=== PATIENT | male | born 1945 | race Caucasian/White ===

== ENCOUNTER 2016-08-15 20:10 | Emergency (ER) | payer MEDICARE, OTHER ==
[~2016-08-15] VITALS: Ht 188 cm; Wt 117.0 kg
[~2016-08-15 20:10] MED LIST: ALLO300T2 PO; ATEN-102 PO; COUM3TAB PO; ROSU20 PO
[2016-08-15 20:32] VITALS: BP 159/105; PULSE 78; RESP 18; TEMP 98.1; O2SAT 94
[2016-08-15] MEDS ORDERED: METO25TA3 PO (20:39)
[2016-08-15] MEDS ORDERED: COUM3TAB PO (20:39)
[2016-08-15] MEDS ORDERED: AMLO5TAB2 PO (20:39)
[2016-08-15] MEDS ORDERED: ALLO300T2 PO (20:39)
[2016-08-15] MEDS ORDERED: ASPI81CH37 CHEW (20:39)
[2016-08-15] MEDS ORDERED: ROSU20 PO (20:39)
[2016-08-15] MEDS ORDERED: SERT25TA83 PO (20:39)
--- NOTE | 2016-08-15 21:00 | PD ---
HPI Chief Complaint: Edema Time Seen by Provider: 20:57 Travel History International Travel<30 days: No Contact w/Intl Traveler<30days: No Traveled to known affect area: No History of Present Illness HPI The patient is a 71-year-old male that complains of right knee swelling since noon today. The swelling came up fairly rapidly. The patient is on Coumadin for pulmonary embolus. He denies any trauma. He had surgery to that knee in 1970 but he doesn't remember what the surgery was about. PFSH Past Medical History Hx Anticoagulant Therapy: Yes (COUMADIN) Arthritis: Yes (RIGHT KNEE) Blood Disorders: No Heart Rhythm Problems: No Cancer: No Cardiac Catheterization: Yes (X2 1998, 2013) Cardiovascular Problems: Yes High Cholesterol: Yes Chemotherapy: No Chest Pain: Yes Congestive Heart Failure: No Coronary Artery Disease: Yes Diabetes: No Diminished Hearing: No Diverticulitis: Yes Deep Vein Thrombosis: Yes (BILATERAL LEGS) Endocrine: No Gastrointestinal Disorders: Yes GERD: Yes Gout: Yes Genitourinary: Yes Hepatitis: No Hiatal Hernia: No Hypertension: Yes Immune Disorder: No Kidney Stones: Yes Musculoskeletal: No Neurologic: No Psychiatric: No Reproductive: No Respiratory: Yes (PULMONARY EMBOLUS: 2000/2001) Myocardial Infarction: No Radiation Therapy: No Renal Failure: No Ulcer: No Tetanus Vaccination: < 5 Years Influenza Vaccination: Yes Past Surgical History Abdominal Surgery: Yes (UMBILICAL HERNIA) Appendectomy: No Cardiac Surgery: Yes (CARDIAC STENT PLACED) Cholecystectomy: No Coronary Stent: Yes (X2) Ear Surgery: No Endocrine Surgery: No Eye Surgery: No Genitourinary Surgery: Yes (KIDNEY STONE REMOVAL) Gynecologic Surgery: No Oral Surgery: Yes (TOOTH EXTRACTION: JUL 19, 2016) Thoracic Surgery: No Other Surgery: Yes Social History Alcohol Use: Yes (SOCIALLY) Tobacco Use: No Substance Use: No Allergies-Medications (Allergen,Severity, Reaction): Coded Allergies: Lipitor (Verified Allergy, Severe, 02/23/10: PT UNABLE TO TAKE LIPITOR, 08/15) Lansoprazole (Verified Adverse Reaction, Severe, Edema, 08/15/16) Lisinopril (Verified Adverse Reaction, Severe, Edema, 08/15/16) Omeprazole (Verified Adverse Reaction, Severe, Edema, 08/15/16) Pantoprazole (Verified Adverse Reaction, Severe, Edema, 08/15/16) Simvastatin (Verified Adverse Reaction, Severe, Edema/RASH, 08/15/16) Warfarin (Verified Adverse Reaction, Severe, Edema, 08/15/16) Reported Meds & Prescriptions Reported Meds & Active Scripts Active Reported Sertraline (Sertraline HCl) 25 Mg Tab 25 Mg PO DAILY Amlodipine (Amlodipine Besylate) 5 Mg Tab 5 Mg PO DAILY Aspirin Low Dose (Aspirin) 81 Mg Chew 81 Mg CHEW DAILY Crestor (Rosuvastatin Calcium) 20 Mg Tab 20 Mg PO DAILY Metoprolol Tartrate 25 Mg Tab 25 Mg PO BID Coumadin (Warfarin) 3 Mg Tab 3 Mg PO DAILY Allopurinol 300 Mg Tab 300 Mg PO DAILY Review of Systems Except as stated in HPI: all other systems reviewed are Neg Physical Exam Narrative GENERAL: The patient is alert, oriented 3 and slight apparent distress with his right knee discomfort. His vital signs show blood pressure 159/105 but are otherwise normal. SKIN: Warm and dry. HEAD: Atraumatic. Normocephalic. EYES: Pupils equal and round. No scleral icterus. No injection or drainage. ENT: No nasal bleeding or discharge. Mucous membranes pink and moist. NECK: Trachea midline. No JVD. CARDIOVASCULAR: Regular rate and rhythm. No murmur appreciated. RESPIRATORY: No accessory muscle use. Clear to auscultation. Breath sounds equal bilaterally. GASTROINTESTINAL: Abdomen soft, non-tender, nondistended. Hepatic and splenic margins not palpable. MUSCULOSKELETAL: No obvious deformities. No clubbing. No cyanosis. There is swelling in the right knee joint but no evidence of trauma or deformity. An old surgical scar is present over the patella. NEUROLOGICAL: Awake and alert. No obvious cranial nerve deficits. Motor grossly within normal limits. Normal speech. PSYCHIATRIC: Appropriate mood and affect; insight and judgment normal. Data Data Last Documented VS Vital Signs Date Time Temp Pulse Resp B/P Pulse Ox O2 Delivery O2 Flow Rate FiO2 08/15/16 21:47 72 16 148/87 95 Room Air 08/15/16 20:32 98.1 Orders Knee, Complete (4vws) (08/15/16 20:58) Complete Blood Count With Diff (08/15/16 20:58) Prothrombin Time / Inr (Pt) (08/15/16 20:58) Ice/Cold Pack (08/15/16 21:00) Splint Or Brace Apply/Monitor (08/15/16 21:00) Labs Laboratory Tests Test 08/15/16 21:00 White Blood Count 5.6 TH/MM3 Red Blood Count 4.95 MIL/MM3 Hemoglobin 15.7 GM/DL Hematocrit 47.5 % Mean Corpuscular Volume 95.9 FL Mean Corpuscular Hemoglobin 31.8 PG Mean Corpuscular Hemoglobin 33.1 % Concent Red Cell Distribution Width 14.1 % Platelet Count 167 TH/MM3 Mean Platelet Volume 8.4 FL Neutrophils (%) (Auto) 64.9 % Lymphocytes (%) (Auto) 21.8 % Monocytes (%) (Auto) 7.5 % Eosinophils (%) (Auto) 3.1 % Basophils (%) (Auto) 2.7 % Neutrophils # (Auto) 3.6 TH/MM3 Lymphocytes # (Auto) 1.2 TH/MM3 Monocytes # (Auto) 0.4 TH/MM3 Eosinophils # (Auto) 0.2 TH/MM3 Basophils # (Auto) 0.2 TH/MM3 CBC Comment DIFF FINAL Differential Comment Prothrombin Time 32.9 SEC Prothromb Time International 2.8 RATIO Ratio MDM Medical Decision Making Medical Screen Exam Complete: Yes Emergency Medical Condition: Yes Medical Record Reviewed: Yes Interpretation(s) The CBC is normal and the ProTime is 32.9 with an INR of 2.8. The x-ray of the right knee shows large joint effusion and degenerative changes. Differential Diagnosis Joint effusion from synovial fluid, hemarthrosis, trauma to the knee, osteochondral insufficiency fractureunlikely, over coagulation with Coumadin Narrative Course The patient likely has a hemarthrosis. His INR is exactly where it should be for anticoagulation for his pulmonary embolus. Plan: I do not feel that tapping the knee at this time is warned it. He is not in severe pain and does not want to take anything other than plain Tylenol. Tapping this joint poses a risk of infection of the joint and also if this is a hemarthrosis as suspected he could simply rebleed and the hemarthrosis would be unchanged. [facility] Diagnosis Primary Impression: Hemarthrosis, right knee Additional Impression: Anticoagulated on Coumadin Additional Instructions: Ice, elevation and compression with an Grover bandage are going to be the initial conservative treatments. [facility] Continue to take your Coumadin as prescribed. Med/Other Pt SpecificInfo: No Change to Meds Disposition: 01 DISCHARGE HOME Condition: Kerwin Palomo MD Aug 15, 2016 21:00
[2016-08-15 21:16] LABS: AUTOMATED NEUTROPHIL # 3.6 TH/MM3 (1.8-7.7); BASOPHIL # 0.2 TH/MM3 (0-0.2); BASOPHIL % 2.7 % (0.0-2.0); EOSINOPHIL # 0.2 TH/MM3 (0-0.4); EOSINOPHIL % 3.1 % (0.0-4.0); HEMATOCRIT 47.5 % (39.0-51.0); LYMPH % 21.8 % (9.0-44.0); LYMPHOCYTE # 1.2 TH/MM3 (1.0-4.8); MEAN CELL VOLUME 95.9 FL (80.0-100.0); MEAN CORPUSCULAR HEMOGLOBIN 31.8 PG (27.0-34.0); MEAN CORPUSCULAR HGB CONC 33.1 % (32.0-36.0); MONO % 7.5 % (0.0-8.0); NEUT % 64.9 % (16.0-70.0); PLATELET COUNT 167 TH/MM3 (150-450); RED BLOOD COUNT 4.95 MIL/MM3 (4.50-5.90); RED CELL DISTRIBUTION WIDTH 14.1 % (11.6-17.2); WHITE BLOOD COUNT 5.6 TH/MM3 (4.0-11.0)
[2016-08-15 21:18] LABS: HEMO FLAGS DIFF FINAL
[2016-08-15 21:31] LABS: INTERNATIONAL NORMALIZED RATIO 2.8 RATIO; PROTHROMBIN TIME - PATIENT 32.9 SEC (9.8-11.6)
--- NOTE | 2016-08-15 21:45 | RADHPO ---
EXAM DATE/TIME: 08/15/2016 21:11 [facility] COMPARISON: No previous studies available for comparison. INDICATIONS : Right knee pain and swelling. MEDICAL HISTORY : Arthritis. SURGICAL HISTORY : Right knee surgery 1970. ENCOUNTER: Initial ACUITY: 1 day PAIN SCORE: 10/10 LOCATION: Right anterior knee. FINDINGS: There is a large suprapatellar fusion. There are degenerative changes. No definite evidence of acute fracture or bony destructive change. Mineralization is normal. CONCLUSION: Degenerative changes. Large joint effusion. Antonio De La Cruz MD on August 15, 2016 at 21:42 Board Certified Radiologist. This report was verified electronically.
[2016-08-15 21:47] VITALS: BP 148/87; PULSE 72; RESP 16; O2SAT 95
== END 2016-08-15 22:23 | disposition home or self-care (01) ==
LOC: PHED 20:10
DX: M25.061 Hemarthrosis, right knee (principal); M25.461 Effusion, right knee; E78.00 Pure hypercholesterolemia, unspecified; I10 Essential (primary) hypertension; M10.9 Gout, unspecified; Z79.01 Long term (current) use of anticoagulants; Z86.711 Personal history of pulmonary embolism; Z86.79 Personal history of other diseases of the circulatory system; Z87.19 Personal history of other diseases of the digestive system; Z87.442 Personal history of urinary calculi
CPT/HCPCS: 73564; 85025; 85610; 99283

== ENCOUNTER → 2016-11-16 | Day surgery (SDC) | payer OTHER ==
[~2016-11-16] MED LIST changes: +ACETAMINOPHEN/HYDROcodone 325 MG/5 MG TAB ONE; +AMLO5TAB2 PO; +ASPI81CH37 CHEW; -ATEN-102 PO; +BACITRACIN IM FOR SOLN 50,000 UNIT VIAL ONE; +BUPIVACAINE/EPINEPHRINE 0.25% 50 ML VIAL ONE; +GENTAMICIN SULFATE 80 MG/2 ML VIAL ONE; +KETOROLAC TROMETHAMINE 30 MG/ML (IVP) VIAL IV PUSH ONE; +LACTATED RINGER'S 1000 ML INJ 1,000 ML ONE; +METO25TA3 PO; +MIDAZOLAM HCL 2 MG/2 ML VIAL ONE; +ONDANSETRON HCL 4 MG/2 ML VIAL IV PUSH ONE; +PROPOFOL 200 MG/20 ML AMP IV ONE; +SERT25TA83 PO; +SODIUM CHLORIDE 0.9% 20 ML VIAL ONE; +VANCOMYCIN HCL 1000 MG VIAL ONE; +ceFAZolin 2 GM PREMIX 50 ML ONE; +ceFAZolin INJ 1,000 MG VIAL ONE
--- NOTE | 2016-11-16 08:51 | TN ---
cc: FRANCESCA KERNS DATE OF SURGERY 11/16/2016 PREOPERATIVE DIAGNOSIS 1. Osteoarthritis of the right knee. 2. Varus deformity right knee 3. Chondromalacia of the patella POSTOPERATIVE DIAGNOSIS 1. Osteoarthritis of the right knee. 2. Varus deformity right knee 3. Chondromalacia of the patella PROCEDURE 1. Right knee unicompartmental replacement arthroplasty, medial compartment 2. Partial patellectomy SURGEON Francesca Kerns MD [employer] Jose Kerns MD ANESTHESIA General ESTIMATED BLOOD LOSS 50 cc INDICATION This patient is a 71-year-old male with severe right knee pain, varus deformity and arthritis in the medial arm. The patient had a previous partial medial meniscectomy many years ago. He has had extensive conservative care including injections, medications, altered activities etc. The patient presents now for surgical treatment. NOTE Jose Kerns MD was present during the entire surgical procedure as my customer relations assistant. In my medical opinion, his skill and care was necessary for the proper management of the patient. COMPONENTS Company: [employer] Femur: Size four, right, metal, cemented. Tibia: Size five, thickness 7.5 mm, all polyethylene, cemented. PROCEDURE The patient brought to the operating room, anesthetized in the supine position. The right leg was placed in the arthroscopy estrada. The right leg was scrubbed with alcohol followed by Hibiclens, followed by Chloraprep and draped sterilely. Antibiotics were given within a one hour time window and a time-out was done. After exsanguination, the tourniquet inflated to 250 mmHg. The previous incision was excised. A medium parapatellar arthrotomy was performed. The medial facet of the patella was resected. Deep retractors allowed good visualization. The patient has severe arthritis in the medial compartment and a very large femoral osteophyte. The posterior facet of the femur was resected with the oscillating saw using a guide. The tibia was contoured freehand for #5 tibial inlay. The contour was excellent. The femur was then marked carefully and contoured with a freehand gregorio followed by a saw for a center fin. Trial abduction showed excellent balancing in flexion/extension with a 7.5 mm thickness component. The wound was irrigated copiously. A field block with 0.5% Marcaine with epinephrine was utilized. One pack of methacrylate was mixed on the back table. The components were cemented. The excessive cement was removed. The knee was brought into full extension and the tourniquet was let down. Hemostasis was controlled with electrocautery. The arthrotomy was repaired over a drain with interrupted #2 Tycron suture, subcutaneous tissue 2-0 Vicryl suture and skin with running intradermal 3-0 Vicryl followed by Benzoin and Steri-Strips. Sponge count, needle counts and instrument counts were all correct. The patient tolerated the procedure well and was taken to the Recovery Room in satisfactory condition. Francesca MD TASIA Thompson/DANIELE /8:34 AM /8:46 AM
== END | disposition home or self-care (01) ==
LOC: ESDC 06:01
PROVIDERS: ATTEND Orthopaedic Surgery Orthopaedic Surgery of the Spine
DX: M17.11 Unilateral primary osteoarthritis, right knee (principal); M21.161 Varus deformity, not elsewhere classified, right knee; M22.41 Chondromalacia patellae, right knee
CPT/HCPCS: 01400; 27446; C1776; J0690; J1580; J1885; J2250; J2405; J3010; J3370; J7120